=== PATIENT | female | born 1950 | race Caucasian/White ===

== ENCOUNTER 2022-06-06 09:39 | Day surgery (SDC) | payer OTHER ==
[~2022-06-06] VITALS: Ht 134.6 cm; Wt 113.5 kg
[~2022-06-06 09:39] MED LIST: CEFAZOLIN SOD 1 GM in D5W 50 ML IV ONE
[2022-06-06] MEDS ORDERED: BUPIVACAINE /PF 0.25% 10 ML VIAL INJ ONE (13:15)
[2022-06-06] MEDS ORDERED: NS IRRIG SOLN 1000 ML IR ONE (13:15)
[2022-06-06] MEDS ORDERED: ROCURONIUM BROMIDE 10 MG/ML (ZEMURON) ONE (13:15)
[2022-06-06] MEDS ORDERED: DEXAMETHASONE SOD PHOSPHATE 4 MG/ML VIAL ONE (13:15)
[2022-06-06] MEDS ORDERED: LR 1,000 ML IV.SOLN IV ONE (13:15)
[2022-06-06] MEDS ORDERED: KETOROLAC TROMETHAMINE 30 MG VIAL ONE (13:15)
[2022-06-06] MEDS ORDERED: SUGAMMADEX SODIUM 200 MG/2 ML VIAL IV ONE (13:15)
[2022-06-06] MEDS ORDERED: MIDAZOLAM HCL 5 MG/5 ML VIAL ONE (13:15)
[2022-06-06] MEDS ORDERED: PROPOFOL 200MG/ 20ML VIAL (DIPRIVAN) IV ONE (13:15)
[2022-06-06] MEDS ORDERED: DESFLURANE 15 MIN GAS INH ONE (13:15)
[2022-06-06] MEDS ORDERED: ONDANSETRON HCL 4 MG/2 ML VIAL ONE (13:15)
[2022-06-06] MEDS ORDERED: fentaNYL CITRATE 250 MCG/5 ML AMP ONE (13:15)
[2022-06-06] MEDS ORDERED: METOCLOPRAMIDE HCL 10 MG/2 ML VIAL IVP PRN (14:00)
[2022-06-06] MEDS ORDERED: MEPERIDINE HCL/PF 25 MG/ML DISP.SYRIN IVP PRN (14:00)
[2022-06-06] MEDS ORDERED: LR 1,000 ML IV SCH (14:00)
[2022-06-06] MEDS ORDERED: LABETALOL 100 MG/ 20ML VIAL IVP PRN (14:00)
[2022-06-06] MEDS ORDERED: hydrALAZINE HCL 20 MG/ML VIAL IVP PRN (14:00)
[2022-06-06] MEDS ORDERED: HYDROmorphone 1 MG/ML INJ. CARTRIDGE IVP PRN ×3 (14:00→14:30)
[2022-06-06] MEDS ORDERED: ACETAMINOPHEN I.V. 1000 MG 100 ML IV ONE (14:02)
[2022-06-06] MEDS ORDERED: HYDROcodone/ACETAMIN 5-325 MG TAB (NORCO/ VICODIN) PO PRN ×2 (14:30)
[2022-06-06] MEDS ORDERED: D5/0.45 NS 1,000 ML IV SCH (14:30)
[2022-06-06 16:34] VITALS: BP_SYST 128
== END 2022-06-06 17:10 | disposition home or self-care (01) ==
LOC: SDS 09:39 → SMU 09:44 → SDS 17:10
PROVIDERS: ATTEND Colon & Rectal Surgery
DX: K43.6 Other and unspecified ventral hernia with obstruction, without gangrene (principal); I10 Essential (primary) hypertension; E11.9 Type 2 diabetes mellitus without complications; G47.33 Obstructive sleep apnea (adult) (pediatric); Z99.89 Dependence on other enabling machines and devices; E78.5 Hyperlipidemia, unspecified; E66.01 Morbid (severe) obesity due to excess calories; Z68.43 Body mass index [BMI] 50.0-59.9, adult; Z90.49 Acquired absence of other specified parts of digestive tract; Z79.899 Other long term (current) drug therapy
CPT/HCPCS: 36415 ×2; 49561; 49568; 71046; 87426; 82962; 88302; 93005; 82948; U0003; J3490 ×2; J0690; J1100; J1885; J2250; J2405; J2704; J3010; J7060; J7120; C1781; J0131